=== PATIENT | male | born 1960 | race Caucasian/White ===

== ENCOUNTER 2021-06-21 17:59 | Emergency (ER) | payer MEDICARE, OTHER ==
[~2021-06-21] VITALS: Ht 175.3 cm; Wt 103.9 kg
--- NOTE | 2021-06-21 18:20 | PHYS DOC ---
Past History Past Medical History: CAD Additional Past Medical Histor: CARDIOMYOPATHY, ESOPHAGEAL SPASM, BACK FUSION Past Surgical History: Appendectomy, Other Additional Past Surgical Histo: SPINE FUSION, STIMULATOR IN SPINE PLACED, HERNIA Alcohol Use: None General Adult EDM: Chief Complaint: CHEST PAIN-CARDIAC NATURE HPI: HPI: ".. I am having some chest pain... Has been going on for about 1/2-hour tonight... I have had some pretty significant past cardiac history.. With need for angioplasty stents... I had 7 vascular spasms in the heart in the past because of angina... Patient is a 61 year old male who presents with above hx and chest discomfort. Patient states chest pain is similar to prior episodes of unstable angina. Patient gives a history of cardiomyopathy secondary to drug used in his spinal fusion surgery to increase bone growth in graft area. Patient also has medical history of diabetes, hypertension, elevated cholesterol, esophageal spasms, chronic back pain, colitis, coronary artery disease, angioplasties and stents, CHF, spinal fusion and chronic back pain. Patient only follows with Dr. Childers. Has also follow-up at [place]. Patient does relate he has completed 3 [employer] inations last in March with [facility]. No history of recent travel. No history of trauma. No history of fever or chills. No history recent changes in medications. Review of Systems: Review of Systems: Constitutional: Denies fever or chills Eyes: Denies change in visual acuity HENT: Denies nasal congestion or sore throat Respiratory: Denies cough or shortness of breath Cardiovascular: Complains of chest pain GI: Denies abdominal pain, nausea, vomiting, bloody stools or diarrhea : Denies dysuria Musculoskeletal: Denies back pain or joint pain Integument: Denies rash Neurologic: Denies headache, focal weakness or sensory changes Endocrine: Denies polyuria or polydipsia Lymphatic: Denies swollen glands Psychiatric: Denies depression or anxiety Family History: Family History: Noncontributory presentation Current Medications: Current Meds: See nursing for home meds Allergies: Allergies: Allergies Coded Allergies Type Severity Reaction Last Updated Verified lisinopril Allergy Unknown 06/21/21 Yes tuberculin,PPD,multi-puncture Allergy Unknown 06/21/21 Yes Physical Exam: PE: Constitutional: Moderate acute distress, non-toxic appearance. [] HENT: Normocephalic, atraumatic, bilateral external ears normal, oropharynx moist, no oral exudates, nose normal. [] Eyes: PERRLA, EOMI, conjunctiva normal, no discharge. [] Neck: Normal range of motion, no tenderness, supple, no stridor. [] Cardiovascular:Heart rate regular rhythm, no murmur, PMI to the left. Lungs & Thorax: Bilateral breath sounds equal apex with few scattered wheezes on auscultation [] Abdomen: Bowel sounds normal, soft, no tenderness, no masses, no pulsatile isis s. Old surgical scars Skin: Warm, dry, no erythema, no rash. Poor turgor Back: No tenderness, no CVA tenderness. Old surgery scars Extremities: No tenderness, no cyanosis, no clubbing, ROM intact, no edema. Old surgery scars. No cording appreciated Neurologic: Alert and oriented X 3, moves all extremities on request, does have distal sensory,, no focal deficits noted. [] Psychologic: Affect anxious, judgement normal, mood normal. [] Current Patient Data: Vital Signs: Vital Signs Date Time Temp Pulse Resp B/P (MAP) Pulse Ox O2 Delivery O2 Flow Rate FiO2 06/21/21 18:08 97.9 83 18 161/95 (117) Room Air EKG: EKG: My interpretation EKG shows a sinus rhythm at 84 bpm. Does have some T wave changes. But no signs of acute STEMI contralateral changes. Time of EKG is 1801- minute My interpretation of second EKG shows similar morphology with the T wave changes. But no findings acute STEMI of contralateral changes. Interval no acute morphology changes. There was some differences in the overall morphology due to his particular removal by patient. Time of this EKG is 2059 hrs. [] Radiology/Procedures: Radiology/Procedures: [] Impressions: [address] [address] IMAGING REPORT Signed PATIENT: LIN REES ACCOUNT: [id number] : 1960 LOCATION: ER AGE: 61 SEX: M EXAM STATUS: REG ER ORD. PHYSICIAN: JEMMA DAVE MD REASON: cp PROCEDURE: PORTABLE CHEST 1V AP chest. HISTORY: Chest pain AP view was taken of the chest. Lungs are clear. Heart is normal in size. There is no pleural effusion. IMPRESSION: 1. No acute chest disease. Electronically signed by: Kevon Strauss MD (06/21/2021 7:28 PM) [facility] DICTATED AND SIGNED BY: KEVON STRAUSS MD DATE: 06/21/211926 CC: JEMMA DAVE MD; SWETHA CHILDERS MD ~MTH0 0 Heart Score: C/O Chest Pain: Yes HEART Score for Chest Pain: HEART Score for Chest Pain Response (Comments) Value History Moderately Suspicious 1 ECG Nonspecific Repolarizatio 1 Age >45 - < 65 1 Risk Factors 1 or 2 Risk Factors 1 Troponin < Normal Limit 0 Total 4 Risk Factors: Risk Factors: DM, Current or recent (<one month) smoker, HTN, HLP, family history of CAD, obesity. Risk Scores: Score 0 - 3: 2.5% MACE over next 6 weeks - Discharge Home Score 4 - 6: 20.3% MACE over next 6 weeks - Admit for Clinical Observation Score 7 - 10: 72.7% MACE over next 6 weeks - Early Invasive Strategies Course & Med Decision Making: Course & Med Decision Making Pertinent Labs and Imaging studies reviewed. (See chart for details) Reviewed all EKG findings and lab work with patient. Offered admission to patient or transfer because of his extensive cardiac history., At this time patient declines admission since he has had 2 - tropes at 0.017. Continue home meds previous directed. Impression: 1. Chest pain 2. Mild anemia 11.2 3. Diabetes 172 glucose 4. History of angina 5. History of cardiomyopathy 6. History of chronic back pain [] Dragon Disclaimer: Dragon Disclaimer: This electronic medical record was generated, in whole or in part, using a voice recognition dictation system. Dragon Disclaimer This chart was dictated in whole or in part using Voice Recognition software in a busy, high-work load, and often noisy Emergency Department environment. It may contain unintended and wholly unrecognized errors or omissions. JEMMA DAVE MD Jun 21, 2021 18:20
[2021-06-21] MEDS ORDERED: ASPIRIN 325 MG TABLET PO ONE (18:30)
[2021-06-21] MEDS ORDERED: IV RINGERS SOLUTION,LACTATED 1,000 ML IV SCH (18:30)
[2021-06-21 19:02] LABS: CALCIUM 9.5 mg/dL (8.5-10.1); CREATININE 1.2 mg/dL (0.7-1.3); GFR 61.8; POTASSIUM 4.5 mmol/L (3.5-5.1)
[2021-06-21 19:05] LABS: BASO # 0.1 x10^3/uL (0.0-0.2); BASO % 1 % (0-3); EOS # 0.4 x10^3/uL (0.0-0.7); EOS % 3 % (0-3); HEMATOCRIT 53.7 % (39.0-53.0); HEMOGLOBIN 17.2 g/dL (13.0-17.5); LYMPH # 3.4 x10^3/uL (1.0-4.8); LYMPH % 30 % (24-48); MEAN CORPUSCULAR HEMOGLOBIN 28 pg (25-35); MEAN CORPUSCULAR HGB CONC 32 g/dL (31-37); MEAN CORPUSCULAR VOLUME 87 fL (79-100); MONO % 9 % (0-9); NEUT # 6.4 x10^3uL (1.8-7.7); NEUT % 57 % (31-73); PLATELET COUNT 304 x10^3/uL (140-400); RED BLOOD COUNT 6.22 x10^6/uL (4.30-5.70); RED CELL DISTRIBUTION WIDTH 16.2 % (11.5-14.5); WHITE BLOOD COUNT 11.2 x10^3/uL (4.0-11.0)
[2021-06-21 19:14] LABS: ALBUMIN 4.2 g/dL (3.4-5.0); DIRECT BILIRUBIN 0.1 mg/dL (0.0-0.2); MAGNESIUM 1.9 mg/dL (1.8-2.4); TOTAL BILIRUBIN 0.4 mg/dL (0.2-1.0); TOTAL PROTEIN 7.9 g/dL (6.4-8.2)
--- NOTE | 2021-06-21 19:30 | RAD ---
AP chest. HISTORY: Chest pain AP view was taken of the chest. Lungs are clear. Heart is normal in size. There is no pleural effusio n. IMPRESSION: 1. No acute chest disease. Electronically signed by: Kevon Strauss MD (06/21/2021 7:28 PM) [facility]
[2021-06-21 20:00] LABS: BARBITURATES NEG (NEG); BENZODIAZEPINES NEG (NEG); CANNABINOIDS NEG (NEG); COCAINE NEG (NEG); METHADONE NEG (NEG); OPIATES NEG (NEG); PHENCYCLIDINE NEG (NEG)
[2021-06-21 20:03] LABS: AMPHETAMINE/METHAMPHETAMINE NEG (NEG)
[2021-06-21 20:36] LABS: BACTERIA,URINE 0 /HPF (0-FEW); BILIRUBIN,URINE NEG (NEG); CLARITY,URINE CLEAR; COLOR,URINE YELLOW; GLUCOSE,URINE >=1000 mg/dL (NEG); NITRITE,URINE NEG (NEG); RBC,URINE 0 /HPF (0-2); UROBILINOGEN,URINE 0.2 mg/dL (0.2 mg/dL); WBC,URINE 0 /HPF (0-4)
--- NOTE | 2021-06-21 22:42 | EKG ---
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
--- NOTE | 2021-06-21 22:51 | EKG ---
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
[2021-06-21 22:56] VITALS: BP 126/85
== END 2021-06-21 22:56 | disposition home or self-care (01) ==
LOC: ER 17:59
DX: R07.89 Other chest pain (principal); D64.9 Anemia, unspecified; E11.9 Type 2 diabetes mellitus without complications; Z88.8 Allergy status to other drugs, medicaments and biological substances
CPT/HCPCS: 36415; 71045; 80048; 80076; 80307; 81001; 82550; 83690; 83735; 83880; 84443; 84484; 85025; 85379; 85610; 85730; 93005; 96360; 96361; 99285; J7120